=== PATIENT | male | born 1950 | race Caucasian/White ===

== ENCOUNTER 2016-08-31 00:11 | Emergency (ER) | payer MEDICAID, OTHER ==
[2016-08-31 00:49] LABS: COLOR PALE YELLOW; LEUKOCYTE ESTERASE,URINE NEGATIVE (NEGATIVE); NITRITE,URINE NEGATIVE (NEGATIVE)
--- NOTE | 2016-08-31 01:25 | EDPHY ---
H & P Stated Complaint: urinary retention Time Seen by Provider: 08/31/16 00:32 HPI/ROS: HPI The patient presents with urinary retention for the last several hours which started slowly and is getting progressively worse throughout the course of the evening. He is using the bathroom every 5-10 minutes and has minimal voids with weak stream. He has a history of BPH and used to be on Flomax however stop taking it. He does not have any dysuria. REVIEW OF SYSTEMS Constitutional: No fever, no chills. Eyes: No discharge. ENT: No sore throat. Cardiovascular: No chest pain, no palpitations. Respiratory: No cough, no shortness of breath. Gastrointestinal: No abdominal pain, no vomiting. Genitourinary: No hematuria. Musculoskeletal: No back pain. Skin: No rashes. Neurological: No headache. PMHx: History of BPH Soc Hx: Lives at home with his PHYSICAL General Appearance: Alert, no distress Eyes: Pupils equal and round no pallor or injection ENT, Mouth: Mucous membranes moist Respiratory: There are no retractions, lungs are clear to auscultation Cardiovascular: Regular rate and rhythm Gastrointestinal: Abdomen is soft and non-tender, no masses, bowel sounds normal Neurological: A&O, moves all extremities Skin: Warm and dry, no rashes Musculoskeletal: Neck is supple non tender Extremities: symmetrical, full range of motion Psychiatric: Patient is oriented X 3, there is no agitation Source: Patient Exam Limitations: No limitations - Personal History Current Tetanus/Diphtheria Vaccine: Yes Current Tetanus Diphtheria and Acellular Pertussis (TDAP): Yes - Medical/Surgical History Hx Asthma: No Hx Chronic Respiratory Disease: Yes Hx Diabetes: Yes Hx Cardiac Disease: No Hx Renal Disease: No Hx Cirrhosis: No Hx Alcoholism: No Hx HIV/AIDS: No Hx Splenectomy or Spleen Trauma: No Other PMH: Diverticulitis, Borderline DM, BPH, - Social History Smoking Status: Current every day smoker Constitutional: Initial Vital Signs Temperature (C) 36.6 C 08/31/16 00:13 Heart Rate 87 08/31/16 00:13 Respiratory Rate 16 08/31/16 00:13 Blood Pressure 187/104 H 08/31/16 00:13 O2 Sat (%) 88 L 08/31/16 00:13 O2 Delivery Mode Room Air Allergies/Adverse Reactions: Sulfa (Sulfonamide Antibiotics) Allergy (Intermediate, Verified 11/18/14 00:05) Rash tamsulosin HCl [From Flomax] Allergy (Verified 11/18/14 00:05) MYCINS Allergy (Unknown, Uncoded 11/12/10 13:56) Home Medications: Medication Instructions Recorded CARLTON WESLEYO 160 mg PO DAILY 11/12/10 Doxazosin Mesylate [Cardura 1 MG 1 mg PO DAILY #20 tab 08/31/16 (*)] Medical Decision Making Procedures: Bedside limited abdominal Ultrasound- performed and interpreted by me. Indication: Urinary retention Findings: Bladder distended with approximately 200 mL says, no masses, no free fluid Impression: Distended bladder Differential Diagnosis: This is a 66-year-old man with history of BPH who presents with urinary retention tonight. He does not have any irritative voiding symptoms such as dysuria. He does not have a fever or back pain. Differential diagnosis includes BPH with obstruction, cystitis, prostatitis. In the emergency room bladder scan was performed by myself showing 200 mL of urine. However, the patient was able to use the bathroom and had 100 mL of urine out. His UA did not demonstrate any signs of infection. I have offered him a Figueroa catheter, however he declines as he feels he can manage this at home. I will start him on an alpha antagonist for presumed BPH. I will also refer him to Urology for further care. He is in agreement with this plan. Departure - Departure Disposition: Home, Routine, Self-Care Clinical Impression: Acute retention of urine Condition: Good Instructions: Urinary Retention in Men (ED) Referrals: Thaddeus Paniagua MD [Medical Doctor] - As per Instructions Prescriptions: Doxazosin Mesylate [Cardura 1 MG (*)] 1 mg PO DAILY #20 tab
[2016-08-31 01:37] VITALS: BP 157/92; PULSE 94; RESP 20; TEMP 98.1; O2SAT 95
== END 2016-08-31 01:45 | disposition home or self-care (01) ==
DX: R33.9 Retention of urine, unspecified (principal); E11.9 Type 2 diabetes mellitus without complications; F17.200 Nicotine dependence, unspecified, uncomplicated

== ENCOUNTER 2017-01-07 06:22 | Observation (INO) | payer OTHER ==
[2017-01-07] MEDS ORDERED: NS 1,000 ML IV SCH (06:23)
[2017-01-07] MEDS ORDERED: diphenhydrAMINE 25 MG CAP PO ONE (06:23)
[2017-01-07] MEDS ORDERED: TEMAZEPAM 15 MG CAP PO PRN ×2 (06:23→10:13)
[2017-01-07] MEDS ORDERED: ACETAMINOPHEN 325 MG TAB PO PRN (06:23)
[2017-01-07] MEDS ORDERED: DIAZEPAM 5 MG TAB PO ONE (06:23)
[2017-01-07] MEDS ORDERED: NITROGLYCERIN 0.4 MG BTL SL PRN (06:23)
[2017-01-07] MEDS ORDERED: ASPIRIN EC 325 MG TAB PO ONE ×2 (06:23→10:13)
[2017-01-07] MEDS ORDERED: FAMOTIDINE 20 MG TAB PO ONE (06:23)
--- NOTE | 2017-01-07 06:59 | CPEKG ---
Heart Rate: 107 RR Interval: 561 P-R Interval: 184 QRSD Interval: 150 QT Interval: 352 QTC Interval: 470 P [place]: 47 QRS [place]: 77 T Wave [place]: 36 EKG Severity - ABNORMAL ECG - EKG Impression: SINUS TACHYCARDIA EKG Impression: PAIRED VENTRICULAR PREMATURE COMPLEXES EKG Impression: PROBABLE LEFT ATRIAL ABNORMALITY EKG Impression: RBBB AND LPFB Electronically Signed By: Blade Castro 07-Jan-2017 15:52:41
[2017-01-07 07:19] LABS: % IMMATURE GRANULYOCYTES 0.2 % (0.0-1.1); ABSOLUTE IMMATURE GRANULOCYTES 0.02 10^3/uL (0.00-0.10); ADD DIFF? NO; ADD MORPH? NO; ADD SCAN? NO; ATYPICAL LYMPHOCYTE FLAG 0 (0-99); FRAGMENT RBC FLAG 0 (0-99); HEMOGLOBIN 17.2 g/dL (13.7-17.5); LEFT SHIFT FLG 0 (0-99); LIPEMIA HEMOLYSIS FLAG 90 (0-99); MEAN CELL HEMOGLOBIN CONCENTR. 34.4 g/dL (32.4-36.7); MEAN CELL VOLUME 93.1 fL (81.5-99.8); MEAN PLATELET VOLUME 10.2 fL (8.7-11.7); PLATELET CLUMPS FLAG 10 (0-99); PLATELET COUNT 167 10^3/uL (150-400); RED BLOOD CELL COUNT 5.37 10^6/uL (4.40-6.38); RED CELL DISTRIBUTION WIDTH 13.1 % (11.5-15.2)
[2017-01-07 07:29] LABS: APTT 31.5 SEC (23.0-38.0); INR 1.03 (0.83-1.16); PROTIME(PATIENT) 13.4 SEC (12.0-15.0)
[2017-01-07 07:36] LABS: ANION GAP 12 mEq/L (8-16); CALCIUM 9.2 mg/dL (8.5-10.4); CARBON DIOXIDE 27 mEq/l (22-31); CHLORIDE 98 mEq/L (97-110); CHOLESTEROL 153 mg/dL (140-220); CHOLESTEROL/HDL RATIO 3.83 RATIO (1.00-4.97); CREATININE 0.7 mg/dL (0.7-1.3); GLOMERULAR FILTRATION RATE > 60; GLUCOSE 113 mg/dL (70-100); HIGH DENSITY LIPOPROTEIN 40 mg/dL (40-65); LDL/HDL RATIO 2.38 RATIO (1.00-3.64); LOW DENSITY LIPOPROTEIN 95 mg/dL (80-100); MAGNESIUM 1.7 mg/dL (1.6-2.3); NON-HIGH DENSITY LIPOPROTEIN 113 mg/dL (90-129); POTASSIUM 4.5 mEq/L (3.5-5.2); SODIUM 137 mEq/L (134-144); TRIGLYCERIDE 92 mg/dL (40-150); VERY LOW DENSITY LIPOPROTEINS 18 mg/dL (8-25)
[2017-01-07] MEDS ORDERED: LIDOCAINE 1% 300 MG/30 ML SDV ONE (08:18)
[2017-01-07] MEDS ORDERED: IOPAMIDOL (ISOVUE-370) 150 ML BTL IV ONE (08:18)
[2017-01-07] MEDS ORDERED: MIDAZOLAM 2 MG/2 ML VIAL ONE ×2 (08:18)
[2017-01-07] MEDS ORDERED: fentaNYL 100 MCG/2 ML INJ ONE (08:18)
--- NOTE | 2017-01-07 08:30 | PDHPUP ---
History & Physical Update H&P update statement: This history and physical update is based on an assessment of the patient which was completed after admission or registration (within 24 hours), but prior to the surgery/procedure. H&P update: H&P reviewed & patient examined, no change in patient's condition since H&P completed
--- NOTE | 2017-01-07 08:30 | PDPROPOC ---
Sedation Plan of Care Sedation Plan of Care: vital signs stable, mental status noted, patient educated of risks, benefits, alternatives, patient can tolerate sedation ASA Classification: ASA 2 Planned drugs: fentanyl, midazolam Mallampati Score: Class 2 Mallampati Reference Image: Patient passed 3-3-2 rule?: Yes
[2017-01-07] MEDS ORDERED: BIVALIRUDIN 250 MG/5 ML VIAL IV ONE (09:27)
[2017-01-07] MEDS ORDERED: NITROGLYCERIN 1,500 MCG/15 ML VIAL MISC ONE (09:27)
[2017-01-07] MEDS ORDERED: ASPIRIN 325 MG TAB ONE (09:55)
[2017-01-07] MEDS ORDERED: TICAGRELOR 90 MG TAB ONE (09:55)
[2017-01-07] MEDS ORDERED: HYDROCODONE/APAP 5/325 TAB PO PRN (10:13)
[2017-01-07] MEDS ORDERED: ATROPINE SULFATE 1 MG/10 ML SYR IVP PRN (10:13)
[2017-01-07] MEDS ORDERED: LORazepam 2 MG/ML INJ IVP PRN (10:13)
[2017-01-07] MEDS ORDERED: ONDANSETRON 4 MG/2 ML VIAL IVP PRN (10:13)
[2017-01-07] MEDS ORDERED: TICAGRELOR 90 MG TAB PO ONE (10:13)
[2017-01-07] MEDS ORDERED: OXYCODONE/APAP 5/325 TAB PO PRN (10:13)
--- NOTE | 2017-01-07 10:31 | CPEKG ---
Heart Rate: 80 RR Interval: 750 P-R Interval: 196 QRSD Interval: 164 QT Interval: 452 QTC Interval: 522 P [place]: 37 QRS [place]: 70 T Wave [place]: 42 EKG Severity - ABNORMAL ECG - EKG Impression: SINUS RHYTHM EKG Impression: RIGHT BUNDLE BRANCH BLOCK Electronically Signed By: Blade Castro 07-Jan-2017 15:52:34
[2017-01-07] MEDS ORDERED: NICOTINE 21 MG/24 HR PATCH TD SCH (14:30)
--- NOTE | 2017-01-07 14:56 | CPIP ---
[f rep st] INVASIVE CARDIAC PROCEDURE DATE OF PROCEDURE: 01/07/2017 PROCEDURE: 1. Coronary angiography. 2. Left ventriculography. 3. Stenting of left anterior descending coronary artery with Synergy drug-eluting stent. INDICATION: 1. Dyspnea on exertion, concerning for class 2 anginal equivalent. 2. Dyspnea on exertion, concerning for class 2 heart failure. 3. Diastolic heart failure, new diagnosis. ACCESS: The patient was prepped and draped in sterile fashion. 1% lidocaine was used to anesthetize the right inguinal region. A 6-Ghanaian introducer sheath was placed selectively into the right commo n femoral artery via modified Seldinger technique. A 7-[place] introducer sheath was placed selective ly into the right common femoral vein via modified Seldinger technique. CORONARY ANGIOGRAPHY: A 6-[place] JL4 was advanced to the left main coronary artery and images obtain ed. The left main coronary artery bifurcated into LAD and circumflex coronary arteries. The left ma in coronary artery appeared normal. The left anterior descending coronary artery gave rise to 1 prom inent diagonal branch as well as several smaller diagonal branches. The left anterior descending cor onary artery had a single discrete 99% stenosis in the mid vessel with ANDREA 2 flow distally. The fir st diagonal artery is free of any significant disease. The circumflex coronary artery is a moderate- sized vessel. It gave rise to 1 branching OM artery. The circumflex coronary artery appeared normal . A 6-[place] JR4 was advanced to the right coronary artery and images obtained. The right coronary artery is dominant. The right coronary artery had mild diffuse disease throughout. There was no kati nosis greater than 10% to 20%. LEFT VENTRICULOGRAPHY: A 6-[place] pigtail catheter was advanced in the left ventricle and images obt ained. Left ventricle is normal size had normal systolic function. Estimated ejection fraction 60%. PERCUTANEOUS CORONARY INTERVENTION OF LEFT ANTERIOR DESCENDING ARTERY: A 6-[place]anaian EBU 3.5 catheter w as advanced to the left main coronary artery and images obtained. Angiography confirmed the presence of high-grade disease involving the mid left anterior descending coronary artery. A Luge wire was p laced in the distal vessel and position verified by angiography. A 3.0 x 15 Emerge balloon was used to pre-dilate the lesion. Followup angiography demonstrated ANDREA-3 flow, significant residual stenos is. A 3.5 x 24 Synergy drug-eluting stent was then placed across the lesion and deployed. Followup angiography demonstrated ANDREA-3 flow, no significant residual stenosis; however, there was incomplete stent expansion in the proximal portion of the stent. The stent was then post dilated with a 3.75 x 12 Noncompliant balloon taken to 16 atmospheres. Followup angiography demonstrated ANDREA-3 flow. No residual stenosis. RIGHT HEART CATHETERIZATION: A right heart catheter was advanced in the right atrium and pressure ob tained. The right atrial pressure was 12 mmHg. The catheter was then advanced in the right ventricl e and pressure obtained. The right ventricular pressure was 56/12 mmHg. Catheter was then advanced in the pulmonary artery position and pressure obtained. The pulmonary artery pressure was 57/33 mmHg with a mean pressure of 42 mmHg. The catheter was then advanced in the wedge position and pressure obtained. The pulmonary capillary wedge pressure was 20 mmHg. The femoral artery saturation was 84% , the pulmonary artery saturation 70.8%. Cardiac output was 9.57, cardiac index 3.98. COMPLICATIONS: None. CONCLUSIONS: 1. Single-vessel coronary artery disease involving the left anterior descending coronary artery. 2. Normal left ventricular systolic function. 3. Status post successful percutaneous coronary intervention of the left anterior descending coronar y artery using a Synergy drug-eluting stent. 4. Pulmonary hypertension with a mean pulmonary artery pressure of 42 mmHg. /[id number]/MODL
[2017-01-07] MEDS: TICAGRELOR 90 MG TAB PO SCH (22:00)
[2017-01-08 05:07] VITALS: BP 133/75
[2017-01-08 05:22] LABS: % IMMATURE GRANULYOCYTES 0.2 % (0.0-1.1); ABSOLUTE IMMATURE GRANULOCYTES 0.02 10^3/uL (0.00-0.10); ADD DIFF? NO; ADD MORPH? NO; ADD SCAN? NO; ATYPICAL LYMPHOCYTE FLAG 0 (0-99); FRAGMENT RBC FLAG 0 (0-99); HEMATOCRIT 46.4 % (40.0-51.0); HEMOGLOBIN 15.5 g/dL (13.7-17.5); LEFT SHIFT FLG 0 (0-99); LIPEMIA HEMOLYSIS FLAG 80 (0-99); MEAN CELL HEMOGLOBIN 31.6 pg (27.9-34.1); MEAN CELL HEMOGLOBIN CONCENTR. 33.4 g/dL (32.4-36.7); MEAN CELL VOLUME 94.5 fL (81.5-99.8); MEAN PLATELET VOLUME 10.3 fL (8.7-11.7); PLATELET CLUMPS FLAG 0 (0-99); PLATELET COUNT 151 10^3/uL (150-400); RED BLOOD CELL COUNT 4.91 10^6/uL (4.40-6.38)
[2017-01-08 05:37] LABS: ANION GAP 9 mEq/L (8-16); CALCIUM 8.7 mg/dL (8.5-10.4); CARBON DIOXIDE 27 mEq/l (22-31); CHLORIDE 101 mEq/L (97-110); CREATININE 0.7 mg/dL (0.7-1.3); GLOMERULAR FILTRATION RATE > 60; GLUCOSE 92 mg/dL (70-100); POTASSIUM 4.5 mEq/L (3.5-5.2); SODIUM 137 mEq/L (134-144)
--- NOTE | 2017-01-08 06:10 | CPEKG ---
Heart Rate: 78 RR Interval: 769 P-R Interval: 184 QRSD Interval: 160 QT Interval: 444 QTC Interval: 506 P [place]: 22 QRS [place]: 92 T Wave [place]: 58 EKG Severity - ABNORMAL ECG - EKG Impression: SINUS RHYTHM EKG Impression: RBBB AND LPFB Electronically Signed By: Blade Castro 08-Jan-2017 10:16:40
[2017-01-08 08:15] VITALS: PULSE 92; RESP 20; TEMP 98.4; O2SAT 89
[2017-01-08] MEDS: TICAGRELOR 90 MG TAB PO SCH (08:52)
[2017-01-08] MEDS ORDERED: ETHACRYNIC ACID 25 MG TAB PO SCH (09:00)
[2017-01-08] MEDS ORDERED: ASPIRIN EC 81 MG TAB PO SCH (09:00)
[2017-01-08] MEDS ORDERED: OMEGA-3 FATTY ACIDS 1,000 MG CAP PO SCH (09:00)
[2017-01-08] MEDS ORDERED: ASCORBIC ACID 500 MG TAB PO SCH (09:00)
[2017-01-08] MEDS ORDERED: DILTIAZEM CD 120 MG CAP PO SCH (09:00)
[2017-01-08] MEDS ORDERED: ATORVASTATIN CALCIUM 20 MG TAB PO SCH (10:00)
[2017-01-08] MEDS ORDERED: CLOPIDOGREL BISULFATE 75 MG TAB PO SCH (10:00)
--- NOTE | 2017-01-08 11:14 | ASDISCHSUM ---
Discharge Information Plan Status:Home with No Needs Medically Cleared to Leave:01/07/2017 Discharge Date:01/08/2017 10:55 AM CM D/C Disposition:Home, Routine, Self-Care ADT D/C Disposition:Home, Routine, Self-Care Projected Discharge Date:01/08/2017 10:55 AM Transportation at D/C:Family Discharge Delay Reason: Follow-Up Date:01/08/2017 10:55 AM Discharge Slot: Final Diagnosis: Placement Information Patient Contact Information Contact Name:SOURAV Relationship:Sister Address:[address] City:[place] Alternate Phone: [facility]/Zip Code:[place] [address] Email: Financial Information Financial Class:Medicare Advantage Plans Primary Plan Desc:[facility] ADV[employer] PLANS Primary Plan Number:[id number] Secondary Plan Desc: Secondary Plan Number: Assessment Information Intervention Information Intervention Type:*ELMORE-Signed Date of Service:01/08/2017 11:13 AM Patient Type:Observation Staff Member:CHI Villegas, Saida Hours:0.25 Discipline: Severity: Comment:
--- NOTE | 2017-01-08 12:03 | GDS ---
[f rep st] DISCHARGE SUMMARY DISCHARGE DIAGNOSES: 1. Congestive heart failure, status post cardiac catheterization with right and left heart catheteri zation this admission. 2. Severely obstructive disease found in the left anterior descending, status post percutaneous [place] sluminal coronary angioplasty and stenting on 01/07/2017. 3. Diastolic congestive heart failure and right heart failure, being [facility]. 4. Intermittent hypoxia. 5. Likely chronic obstructive pulmonary disease and sleep apnea. Being evaluated by [facility]. 6. Obesity with BMI 38. 7. Hypertension. 8. Current tobacco abuse. PROCEDURES: 1. On 01/07/2017, left heart catheterization, which showed left main that appeared normal. There wa s an LAD giving rise to one prominent diagonal branch and several smaller diagonal branches. LAD had a single discrete 99% stenosis in the mid vessel. The 1st diagonal is free of any significant disea se. The circumflex is moderate sized, giving rise to 1 branching OM artery. The circumflex appeared normal. Right coronary artery has mild diffuse disease throughout. He is status post PTCA and sten ting with a 3.5 x 24 mm Synergy drug-eluting stent. 2. Right heart catheterization showed right atrial pressure of 12, RV pressure was 56/12 mmHg, PA pr essure 57/33, with a mean of 42 mmHg. The femoral artery saturation was 84%. Pulmonary artery satur ation 70.8%. Cardiac output of 9.57 with a cardiac index of 3.98. PHYSICIANS: Dr. Hernandez. BRIEF HISTORY: Please see dictated H and P from our office for complete details. The patient is a [age]-year-old male with chronic morbid obesity, current tobacco abuse, likely YESENIA, and COPD with right v entricular dysfunction. He has been seen for new-onset CHF by Dr. Castro. His medications have been slowly up-titrated. He had a sulfonamide reaction to torsemide and has now been switched at ethacryn ic acid. He proceeded to left and right heart catheterization for further diagnostics. He was found to have very severe disease in his LAD. HOSPITAL COURSE BY PROBLEM: 1. Severe LAD disease: He is status post PTCA and stenting. We reviewed the importance of dual ant iplatelet therapy. He has been started on Plavix and aspirin therapy. He has had issues with bleedi ng hemorrhoids in the past. He is advised to inform us prior to skipping or not taking medications. 2. Dyslipidemia: His LDL is 95. He has agreed to start atorvastatin 20 mg daily for his secondary prevention. 3. Tobacco abuse: He has tolerated nicotine patches. He is once again encouraged to quit smoking. 4. Hypertension: Blood pressures have been adequately controlled in this admission. PHYSICAL EXAMINATION: VITAL SIGNS: On day of discharge, blood pressure 133/75, heart rate 92, respi rations 20, O2 saturation 89% on room air, temp of 98.4 degrees Fahrenheit. GENERAL: He is a pleasa nt male in no apparent distress. HEART: Regular rate and rhythm. LUNGS: Diminished without crackl es. SKIN: Right groin site with ecchymosis present, without bruit. LABORATORY DATA: BMP: Sodium 137, potassium 4.5, chloride 101, CO2 27, BUN 11, creatinine 0.7, gluc ose 92. Total cholesterol 153, LDL cholesterol 95, HDL 40, triglycerides 92. Telemetry shows sinus rhythm. RESULTS PENDING: None. DIET: Cardiac low-salt low-fat. ACTIVITY: Groin precautions were reviewed. Patient is also advised to consider cardiac rehab in the outpatient setting. DISCHARGE MEDICATIONS: Please see med reconciliation for complete details. He is being sent home on his home fish oil, multivitamin, ethacrynic acid, diltiazem, and vitamin C. He has a new prescripti on for Plavix 75 mg p.o. daily, atorvastatin 20 mg p.o. daily, and aspirin 81 mg p.o. daily. DISCHARGE INSTRUCTIONS: 1. Groin precautions as reviewed. 2. Follow up with Dr. Castro in 1-2 weeks' time. 3. Consider cardiac rehab. 4. Smoking cessation. /[id number]/MODL
== END 2017-01-08 10:55 | disposition home or self-care (01) ==
LOC: FCATH 06:22 → F2W 10:48
PROVIDERS: ADMIT Internal Medicine Cardiovascular Disease; ATTEND Internal Medicine Cardiovascular Disease
PROC: 4A023N8 Measurement of Cardiac Sampling and Pressure, Bilateral, Percutaneous Approach (ICD-10-PCS; principal; 2017-01-07)
PROC: 0270346 Dilation of Coronary Artery, One Artery, Bifurcation, with Drug-eluting Intraluminal Device, Percutaneous Approach (ICD-10-PCS; principal; 2017-01-07)
PROC: B2151ZZ Fluoroscopy of Left Heart using Low Osmolar Contrast (ICD-10-PCS; principal; 2017-01-07)
PROC: B2111ZZ Fluoroscopy of Multiple Coronary Arteries using Low Osmolar Contrast (ICD-10-PCS; principal; 2017-01-07)
DX: I50.9 Heart failure, unspecified (principal); I25.82 Chronic total occlusion of coronary artery; I50.32 Chronic diastolic (congestive) heart failure; R09.02 Hypoxemia; I10 Essential (primary) hypertension; F17.200 Nicotine dependence, unspecified, uncomplicated; E66.9 Obesity, unspecified; Z68.38 Body mass index [BMI] 38.0-38.9, adult
CPT/HCPCS: 92928; 93005; 93460; C1725; C1769; C1874; C1887; C9600; G0378; J0583; J1644; J2250; J3010; Q9967

== ENCOUNTER → 2017-11-16 | Outpatient (CLI) | payer OTHER | LOC: FIMAGING 14:16 | PROVIDERS: ATTEND Family Medicine | DX: R22.2 Localized swelling, mass and lump, trunk (principal); R91.8 Other nonspecific abnormal finding of lung field; J43.2 Centrilobular emphysema ==

== ENCOUNTER 2017-11-28 09:58 | Day surgery (SDC) | payer OTHER ==
[2017-11-28] MEDS ORDERED: NALOXONE HCL 0.4 MG/ML INJ ONE (10:23)
[2017-11-28] MEDS ORDERED: MIDAZOLAM 2 MG/2 ML VIAL ONE (10:24)
[2017-11-28] MEDS ORDERED: FLUMAZENIL 0.5 MG/5 ML MDV IVP ONE (10:24)
[2017-11-28] MEDS ORDERED: fentaNYL 100 MCG/2 ML INJ ONE (10:24)
[2017-11-28] MEDS ORDERED: ONDANSETRON 4 MG/2 ML VIAL ONE (10:25)
[2017-11-28] MEDS ORDERED: NALOXONE HCL 0.4 MG/ML INJ IVP PRN (10:29)
[2017-11-28] MEDS ORDERED: FLUMAZENIL 0.5 MG/5 ML MDV IVP PRN (10:29)
[2017-11-28] MEDS ORDERED: MEPERIDINE 25 MG/ML SYR IVP PRN (10:29)
[2017-11-28] MEDS ORDERED: fentaNYL 100 MCG/2 ML INJ IVP PRN (10:29)
[2017-11-28] MEDS ORDERED: MIDAZOLAM 2 MG/2 ML VIAL IVP PRN (10:29)
[2017-11-28] MEDS ORDERED: NS 1,000 ML IV SCH (10:30)
[2017-11-28 11:14] LABS: INR 0.96 (0.83-1.16)
--- NOTE | 2017-11-28 11:22 | PDRADPRE ---
Radiology History & Physical Indication for procedure: cancer (LLL Lung mass) Home medications: Diltiazem HCl [Cartia Xt] 240 mg PO DAILY 01/04/17 [Last Taken 01/03/17] Hydrochlorothiazide [HCTZ (*)] 50 mg PO DAILY 10/14/17 [Last Taken Unknown] Spironolactone [Aldactone 25 MG (*)] 25 mg PO DAILY 10/14/17 [Last Taken Unknown ] Multivitamins 1 tab PO DAILY 11/18/17 [Last Taken Unknown] Vitamin C 500 mg (*) 500 mg PO BID 11/18/17 [Last Taken Unknown] Allergies/Adverse Reactions: ASHUTOSH Inhibitors Allergy (Intermediate, Verified 10/14/17 10:10) swelling Sulfa (Sulfonamide Antibiotics) Allergy (Intermediate, Verified 10/14/17 10:01) Rash MYCINS Allergy (Unknown, Uncoded 11/12/10 13:56) Mental status: A&Ox3 Heart exam: regular rate and rhythm Lungs exam: other (Crackles bilateral lungs) Mallampati Score: Class 3
--- NOTE | 2017-11-28 11:23 | PDPROPOC ---
Sedation Plan of Care Sedation Plan of Care: vital signs stable, mental status noted, patient educated of risks, benefits, alternatives, patient can tolerate sedation ASA Classification: ASA 2 Planned drugs: fentanyl, midazolam Mallampati Score: Class 3 Mallampati Reference Image: Patient passed 3-3-2 rule?: Yes
[2017-11-28] MEDS ORDERED: ONDANSETRON 4 MG/2 ML VIAL IVP PRN (12:44)
--- NOTE | 2017-11-28 12:46 | PDRADPN ---
Radiology Procedure Note Date of Procedure: 11/28/17 Radiologist: Tacos Wharton Anesthesia: IV Sedation Pre-op Diagnosis: Lung mass Post-op Diagnosis: Lung mass Indication: Lung mass Procedure: CT guided lung mass biopsy Finding(s): Two 18 ga cores LLL lung mass Inf/Abcess present in the surg proc area at time of surgery?: No
[2017-11-28 15:56] VITALS: BP 118/68
== END 2017-11-28 16:20 | disposition home or self-care (01) ==
LOC: FIMAGING 09:58
PROVIDERS: ATTEND Family Medicine
PROC: 0BBJ3ZX Excision of Left Lower Lung Lobe, Percutaneous Approach, Diagnostic (ICD-10-PCS; principal; 2017-11-28 12:55)
DX: C34.32 Malignant neoplasm of lower lobe, left bronchus or lung (principal)
CPT/HCPCS: J2250; J2310; J2405; J3010

== ENCOUNTER → 2017-12-27 | Outpatient (CLI) | payer OTHER ==
[~2017-12-27] MED LIST: GADOBUTROL 10 ML VIAL IVP ONE
== END ==
LOC: FIMAGING 15:03
PROVIDERS: ATTEND Internal Medicine Hematology & Oncology
DX: G31.9 Degenerative disease of nervous system, unspecified (principal); C34.32 Malignant neoplasm of lower lobe, left bronchus or lung
CPT/HCPCS: 70553; A9585